=== PATIENT | male | born 1995 | race Caucasian/White ===

== ENCOUNTER 2022-12-18 16:42 | Emergency (ER) | payer OTHER, SELFPAY ==
[2022-12-18 16:47] VITALS: BP 165/87; PULSE 88; RESP 20; TEMP 36.8; O2SAT 98; BMI 40.7
--- NOTE | 2022-12-18 16:55 | XR_ITS ---
[address] [address] Patient Name: CHAD MCMAHON MRN: [id number] date: 1995 Sex: M Assigned Patient Location: ER Current Patient Location: ED.MAIN Accession/Order Number: [id number] Exam Date: 12/18/2022 17:05 Report Date: 12/18/2022 17:31 At the request of: RONEY BARNETT Procedure: XR shoulder RT min 2V EXAM: XR shoulder RT min 2V HISTORY: Fall COMPARISON: None. TECHNIQUE: 3 views FINDINGS: No osseous lesion, fracture, dislocation or subluxation. Joint spaces are normal. No visualized effusion. No visualized soft tissue edema. XR/XR shoulder RT min 2V IMPRESSION: Normal x-rays Electronically authenticated by: LETI LOZADA Date: 12/18/2022 17:31
--- NOTE | 2022-12-18 16:56 | ED_ITS ---
HPI - Extremity Injury (Upper) General Chief Complaint: Extremity Injury, Upper Stated Complaint: Upper Extremity Injury Time Seen by Provider: 12/18/22 16:55 Source: patient Mode of arrival: walk-in Limitations: no limitations History of Present Illness HPI narrative: patient is a 27-year-old male who presents to the emergency department with his for the evaluation of right shoulder pain after fall yesterday at work. He states he slipped on oil slick and landed on his right shoulder. He denies any head injury, loss of consciousness. He reports pain in the right glenohumeral joint. He is right-hand dominant. He denies any other associated injuries, neck pain, back pain or right elbow pain. No medications taken prior to arrival. Related Data Home Medications Medication Instructions Recorded Confirmed No Known Home Medications 12/18/22 12/18/22 Previous Rx's Medication Instructions Recorded methocarbamol 750 mg tablet 750 mg PO TID PRN pain #20 tabs 12/18/22 naproxen sodium 550 mg tablet 550 mg PO BID PRN pain #10 tabs 12/18/22 Allergies Allergy/AdvReac Type Severity Reaction Status Date / Time No Known Drug Allergies Allergy Verified 12/18/22 16:51 Review of Systems ROS Constitutional Denies: fever or chills Cardiovascular Denies: chest pain Respiratory Denies: shortness of breath Gastrointestinal Denies: nausea or vomiting Musculoskeletal Reports: extremity pain and joint pain; Denies: back pain or neck pain Integumentary/Breast Denies: rash Neurological Denies: headache PFSH PFSH Social History Smoking status: Heavy tobacco smoker Exam Narrative Exam Narrative: Gen.: Awake, alert, in no distress Head: Normocephalic, atraumatic ENT: Moist mucous membranes Respiratory: No respiratory distress Extremities: Moves extremities equally, tenderness of the right glenohumeral joint, no obvious deformity or sulcus sign. Pain with abduction although the patient is able to actively move the right shoulder with no difficulty. No bony tenderness of the distal humerus, right elbow or right forearm. He is able to flex and extend, locking the right elbow. 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 No bony tenderness of the C-spine, posterior right shoulder. Psych: Normal mood and affect Neuro: No focal neuro deficit Skin: Warm, dry, intact Constitutional Vital Signs, click to edit/add: Last Vital Signs Temp 98.3 F 12/18/22 16:47 Pulse 88 12/18/22 16:47 Resp 20 12/18/22 16:47 BP 165/87 H 12/18/22 16:47 Pulse Ox 98 12/18/22 16:47 O2 Del Method Room Air 12/18/22 16:47 Course Vital Signs Vital signs: Vital Signs Temperature 98.3 F 12/18/22 16:47 Pulse Rate 88 12/18/22 16:47 Respiratory Rate 20 12/18/22 16:47 Blood Pressure 165/87 H 12/18/22 16:47 Pulse Oximetry 98 12/18/22 16:47 Oxygen Delivery Method Room Air 12/18/22 16:47 Temperature 98.3 F 12/18/22 16:47 Pulse Rate 88 12/18/22 16:47 Respiratory Rate 20 12/18/22 16:47 Blood Pressure 165/87 H 12/18/22 16:47 Pulse Oximetry 98 12/18/22 16:47 Oxygen Delivery Method Room Air 12/18/22 16:47 MDM - Extremity Injury (Upper) MDM Narrative Medical decision making narrative: x-rays with no evidence of fracture or dislocation. Patient placed in a right shoulder sling and remains neurovascularly intact. Rest, ice, gentle stretching. Sling for 3-5 days only. Follow-up with occupational health and return to the Emergency Room if symptoms change or worsen. Medical Records Attestation: I reviewed the patient's medical records. Imaging Data x-ray shoulder: Attestation: I have reviewed the pertinent imaging results. Radiologist's impression: Procedure: XR shoulder RT min 2V EXAM: XR shoulder RT min 2V HISTORY: Fall COMPARISON: None. TECHNIQUE: 3 views FINDINGS: No osseous lesion, fracture, dislocation or subluxation. Joint spaces are normal. No visualized effusion. No visualized soft tissue edema. IMPRESSION: Normal x-rays Electronically authenticated by: LETI LOZADA Date: 12/18/2022 17:31 Discharge Plan Discharge Chief Complaint: Extremity Injury, Upper Clinical Impression: Contusion of right shoulder Patient Disposition: Home, Self-Care Time of Disposition Decision: 17:47 Condition: Good Prescriptions / Home Meds: New methocarbamol 750 mg tablet 750 mg PO TID PRN (Reason: pain) Qty: 20 0RF naproxen sodium 550 mg tablet 550 mg PO BID PRN (Reason: pain) Qty: 10 0RF No Action No Known Home Medications Instructions: Contusion in Adults (ED) Stand Alone Forms: Portal Instructions Referrals: [facility] [Outside] - As soon as possible
[2022-12-18] MEDS: ORPHENADRINE 60 MG/ 2 ML VIAL IM (17:16)
[2022-12-18] MEDS: HYDROCODONE/ACET 5-325 MG TABLET 1 TAB PO (17:50)
== END 2022-12-18 18:02 | disposition home or self-care (01) ==
PROVIDERS: Emergency Provider Emergency Medicine Emergency Medical Services
DX: S40.011A Contusion of right shoulder, initial encounter (principal); W01.0XXA Fall on same level from slipping, tripping and stumbling without subsequent striking against object, initial encounter
CPT/HCPCS: 73030; 96372; 99284

== ENCOUNTER 2024-06-06 06:45 | Outpatient (OUT) | payer BC, SELFPAY ==
[2024-06-06 07:50] LABS: Chol HDL Ratio 3.6; Cholesterol 164 mg/dL (<=200); HDL Cholesterol 46 mg/dL (40-60); LDL Cholesterol Calculated 96.4 mg/dL; Triglycerides 108 mg/dL (<=150); VLDL CHOLESTEROL 21.6 mg/dL
[2024-06-06 14:17] LABS: Estimated Average Glucose 108 mg/dL; Glycohemoglobin A1C 5.4 % (4.5-6.2)
== END 2024-06-06 06:46 | disposition home or self-care (01) ==
LOC: LAB 06:49
DX: Z79.899 Other long term (current) drug therapy (principal)
CPT/HCPCS: 36415; 80061; 83036